=== PATIENT | male | born 2000 | race Caucasian/White ===

== ENCOUNTER 2021-03-16 10:41 | Emergency (ER) | payer BC ==
[~2021-03-16] VITALS: Ht 182.9 cm; Wt 79.8 kg
--- NOTE | 2021-03-16 10:45 | NUR ---
patient bibra 89 from drug rehab, found unresponsive. narcan 4mg intranasal given. a/o x4. denies pain. on room air, respiration regular and unlabored, o2 saturation 95%. attached to monitor. warm blanket provided. will continue to monitor.
[2021-03-16 11:31] LABS: BASOPHILS % (AUTO) 0.6 % (0.0-2.0); EOSINOPHILS % (AUTO) 1.2 % (0.0-6.0); HEMATOCRIT 41 % (39-51); HEMOGLOBIN 13.7 g/dL (13.5-17.5); LYMPHOCYTES # (AUTO) 2.3 /CMM (0.8-4.8); LYMPHOCYTES % (AUTO) 45.8 % (20.0-44.0); MEAN CORPUSCULAR HGB CONC 34 g/dl (31.0-36.0); MEAN CORPUSCULAR VOLUME 91 fL (80-96); MONOCYTES # (AUTO) 0.3 /CMM (0.1-1.30); MONOCYTES % (AUTO) 5.8 % (2.0-12.0); NEUTROPHILS # (AUTO) 2.3 /CMM (1.8-8.9); NEUTROPHILS % (AUTO) 46.6 % (43.0-81.0); PLATELET COUNT (AUTO) 238 /CMM (150-450)
[2021-03-16 11:34] LABS: BILIRUBIN,URINE MODERATE (NEGATIVE); COLOR,URINE DARK YELLOW (YELLOW); LEUKOCYTE ESTERASE ,URINE NEGATIVE (NEGATIVE); NITRITE, URINE NEGATIVE (NEGATIVE); PROTEIN,URINE TRACE mg/dl (NEGATIVE); UGLUCOSE NEGATIVE (NEGATIVE)
[2021-03-16 11:47] LABS: BACTERIA,URINE Few /HPF (None Seen); RBC,URINE 0-2 /HPF (0-2); SQUAMOUS EPITHELIAL CELL,UR Rare /HPF (None Seen)
[2021-03-16 11:48] LABS: MUCUS,URINE Many /LPF (None Seen)
[2021-03-16 11:51] LABS: ALANINE AMINOTRANSFERASE 26 U/L (12-78); ALBUMIN 4.6 g/dL (3.4-5.0); ALCOHOL, BLOOD < 3 mg/dL (0-0); ALKALINE PHOSPHATASE 61 U/L (46-116); ASPARTATE AMINOTRANSFERASE 28 U/L (15-37); BILIRUBIN,DIRECT 0.2 mg/dL (0.0-0.2); BILIRUBIN,TOTAL 1.1 mg/dL (0.2-1.0); CALCIUM, SERUM 9.4 mg/dL (8.5-10.1); CARBON DIOXIDE 26 mmol/L (21-32); CHLORIDE 100 mmol/L (98-107); CREATININE 0.9 mg/dL (0.6-1.3); GLUCOSE 108 mg/dL (74-106); POTASSIUM 3.3 mmol/L (3.5-5.1); SODIUM SERUM 137 mmol/L (136-145); TOTAL PROTEIN, SERUM 8.4 g/dL (6.4-8.2); UREA NITROGEN, BLOOD 16 mg/dL (7-18)
[2021-03-16 11:55] LABS: ACETAMINOPHEN 0 ug/ml (10-30)
[2021-03-16] MEDS ORDERED: NALO1DIS2 IJ (12:58)
--- NOTE | 2021-03-16 13:39 | NUR ---
CALLED [facility] [phone] WHERE PT. WAS BROUGHT FROM. THEY WILL CALL BACK IN 30 MIN TO PROVIDE INFO FOR TRANSPORT BACK.
--- NOTE | 2021-03-16 15:04 | NUR ---
TRANSPODT FROM FACILITY ETA 60 MIN FROM 1500
--- NOTE | 2021-03-16 15:47 | NUR ---
SAMSON HOWARD, [facility] ([facility]), CONTACT # [phone] STATES THAT SHE'S WORKING TO FIND A PLACE FOR THE PATIENT. WILL CALL BACK SOON SHE FINDS THE PLACE.
--- NOTE | 2021-03-16 16:07 | NUR ---
SS Consult: SS Consult requested for Drug Use. The pt. is a 21-year-old male. The pt. was BIBRA after he was found unresponsive at a rehab facility he had been accepted to. Per pt. he had use Heroin right before arriving to [facility] Facility [phone]. Per EMR, the pt. used Fentanyl & Heroin. Patient unable to provide phone number or address of facility. Pt. 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 SW completed drug use intervention. Pt. stated he does want to make a change in regard to drug use and that is why he admitted himself to a rehab facility. SW explored pt.s living conditions & support system. Per pt., he is originally from [place] and his support system includes his father, Seth Deng [phone]. Per pt., he came to [place] about 1 year ago and has not had a permanent residence, has been homeless. Per pt. [facility] Patient signed homeless waiver & it was placed in the pt.s chart. pt. stated he would like to return to [place] [phone] rehab when medically cleared. LUCIANO provided pt. with them following homeless & addiction resources & patient accepted them: ADDICTION RESOURCES For Drugs and Alcohol [facility] Substance Abuse Helpline([facility] Outpatient treatment, residential treatment, recovery support for youth and adults [facility] www.[facility]family[facility].[place] [employer] ([employer]) [facility] Teen programs for drug/alcohol education and support [facility] [place]. Program for adults, sliding scale provides support and education RaniTilera www.Metaconomyation.org [place]; Outpatient/residential treatment programs; transition to sober living [facility] www.cri-help.org [place]; Outpatient and residential treatment programs; transition to sober living [facility] Declan Solorio; Outpatient education and supportive programs for teens and adults [place] www.oasiswomensrecovery.org [place]; Residential treatment and work program for females only [facility] www.G[facility] Researchxhouse.org [place]: Outpatient/residential treatment program for teens and young adults [facility] [place] www.[facility].org [place] [facility], inpatient, outpatient for adults and youth [facility], [facility]. [place]; Outpatient programs and referrals to community residential programs. Alcoholics Anonymous -SFV information and meeting and schedules www.aa-intergroup.org Ei-Duom-Vzygzoi https://al-anon.org/ [place] support groups for family of alcoholics. Marijuana Anonymous www.Syllabusteristrict6.org -SFV listing of meetings Narcotics Anonymous www.na.org SOBER LIVING RESOURCES [facility] www.soberhousing.net A non-profit agency that provides resources to recovery and sober living homes throughout [facility] Sober Living Homes: A Work in Progress, [facility], [place] [facility] Womens Sober Living Homes: [facility] x [phone] [place], [place] [facility] Sober Living Homes: [facility] Counseling--Outpatient [facility] [address] [facility] [place] [address] (Specializes in in-depth psychotherapy for emotional distress: anxiety, depression, interpersonal conflicts, life transitions, childhood abuse) [place] [id number] [place] [address] (Assist with solving problem marital difficulties, separation & divorce, aging parents, & grief, chronic & terminal illness) [facility] [address] [place] [address] (Deal with loss & grief, anxiety, marital difficulties) Homebound/Mental Health Services [address] [facility], [address] [place], [place] [address] (Provide in-home mental services to people who are incapable of leaving their homes) Organization for Needs of the Elderly Senior Service/Resource Center [address] [place] [address] [facility] [address] [place] [address] PSYCHIATRIC OUTPATIENT SERVICES [facility] Partial Hospitalization and Intensive Outpatient Program (Managed Care and [place] Only)[address] [facility] [phone] [facility] Partial Hospitalization and Outpatient [id number] [facility]. [address] [place], [place] [phone] [facility] Partial Hospitalization and Outpatient [id number] [place], [place] [phone] [facility] [id number] [facility]. [address] [place], [place] [phone] [facility] Partial Hospitalization and Outpatient Mxyooug70198 [place], [phone] Crisis and Hotline Telephone Numbers 24-Hour service unless stated [place] Crisis Hotlines: [facility] Mental Health/Crisis Line........[phone] Suicide Prevention Center (24 Hours).......[phone] Suicide Prevention Crisis Center.......[phone] (24 Hours) Assaults Against Women Hotline.........723.875.8441 (24 Hours -- [facility]) Women and Children Crisis Correction...........[phone] (24 Hours) Child Abuse Hotline............[phone] [facility] (24 Hours)..........[phone] Alcoholics Anonymous (24 Hours)..........[phone] Cocaine Anonymous (24 Hours)............[phone] Narcotics Anonymous (24 Hours)..........[phone] [address] [facility] [address], [place] [address] Mental Health Services Ana Garcia [place] [address] [place] [address] Services: Outpatient therapy for children, teens, young adults, adults, older adults, and families; Psychiatric services, medication support Crisis and Hotline Telephone Numbers 24-Hour service unless stated [place] Crisis Hotlines: [employer]. Mental Health/Crisis Line........[phone] Suicide Prevention Center (24 Hours).......[phone] Suicide Prevention Crisis Center.......[phone] (24 Hours) Alcoholics Anonymous (24 Hours)..........706.185.7506 National Crisis Hotlines: Alcohol and Drug Helpline - Provides referrals to local facilities where adolescents and adults can seek help. Brief intervention. VIJI Helpline [facility] [place] [facility]ally Ill 6-089-397-ISTY National Youth Crisis Hotline National Mental Health Assn. Provides free information on specific disorders, referral directory to mental health providers, national directory of local mental health associations (M-F, 9-5 EST) National [place] of Mental Health Information Line: Provide sinformation and literature on mental illness by disorder-for professionals and general public.
[2021-03-16 18:16] VITALS: BP 118/77
--- NOTE | 2021-03-16 18:16 | NUR ---
patient picked up by priavte transportation going to rehab center, in no distress.
== END 2021-03-16 18:16 ==
LOC: ER 10:51
DX: T40.411A Poisoning by fentanyl or fentanyl analogs, accidental (unintentional), initial encounter (principal); Z79.899 Other long term (current) drug therapy; Y92.89 Other specified places as the place of occurrence of the external cause
CPT/HCPCS: 36415; 80048-TC; 80076-TC; 81001; 85025-TC; 87086-TC; G0480